=== PATIENT | female | born 1995 | race Caucasian/White ===

== ENCOUNTER 2021-03-18 00:32 | Outpatient (CLI) | payer OTHER | END 2021-03-18 03:18 | disposition home or self-care (01) | LOC: GENOP 00:32 | DX: O99.891 Other specified diseases and conditions complicating pregnancy (principal); N89.8 Other specified noninflammatory disorders of vagina; O36.8130 Decreased fetal movements, third trimester, not applicable or unspecified; O99.513 Diseases of the respiratory system complicating pregnancy, third trimester; J45.909 Unspecified asthma, uncomplicated; O16.3 Unspecified maternal hypertension, third trimester; O99.413 Diseases of the circulatory system complicating pregnancy, third trimester; I45.6 Pre-excitation syndrome; O99.333 Smoking (tobacco) complicating pregnancy, third trimester; F17.210 Nicotine dependence, cigarettes, uncomplicated; O99.343 Other mental disorders complicating pregnancy, third trimester; F41.9 Anxiety disorder, unspecified; F32.9 Major depressive disorder, single episode, unspecified; O99.353 Diseases of the nervous system complicating pregnancy, third trimester; G43.909 Migraine, unspecified, not intractable, without status migrainosus; O99.283 Endocrine, nutritional and metabolic diseases complicating pregnancy, third trimester; E28.2 Polycystic ovarian syndrome; Z91.048 Other nonmedicinal substance allergy status; Z3A.29 29 weeks gestation of pregnancy | CPT/HCPCS: 59025; 81001; 83518; 96360; J7120; J7121 ==

== ENCOUNTER 2021-06-01 15:42 | Inpatient (IN) | payer OTHER ==
[~2021-06-01] VITALS: Ht 167.6 cm; Wt 99.8 kg
[2021-06-01 19:35] LABS: HEMOGLOBIN 14.2 gm/dl (12.3-15.3); RED BLOOD COUNT 4.48 M/UL (4.00-5.10); WHITE BLOOD COUNT 14.6 K/UL (4.5-11.0)
[2021-06-01] MEDS ORDERED: ZOLOFT25 MG PO (19:56)
[2021-06-01] MEDS ORDERED: SINGULAIR10 MG PO (19:56)
[2021-06-02] MEDS ORDERED: COLACE100 MG PO (12:17)
[2021-06-02] MEDS ORDERED: IBUPROFEN800 MG PO (12:17)
[2021-06-03 07:23] LABS: HEMOGLOBIN 12.3 gm/dl (12.3-15.3)
[2021-06-04] MEDS ORDERED: IBUPROFEN800 MG PO (13:13)
[2021-06-04] MEDS ORDERED: COLACE100 MG PO (13:13)
[2021-06-04] MEDS ORDERED: HYDROCODON-ACE1 EAC4 PO (13:13)
== END 2021-06-04 16:30 | disposition home or self-care (01) | DRG 806 ==
LOC: GENOP 15:42 → OB 23:11
PROVIDERS: ADMIT Obstetrics & Gynecology
PROC: 0W8NXZZ Division of Female Perineum, External Approach (ICD-10-PCS; principal; 2021-06-02)
PROC: 10E0XZZ Delivery of Products of Conception, External Approach (ICD-10-PCS; principal; 2021-06-02)
PROC: 00HU33Z Insertion of Infusion Device into Spinal Canal, Percutaneous Approach (ICD-10-PCS; 2021-06-02)
PROC: 4A1HXCZ Monitoring of Products of Conception, Cardiac Rate, External Approach (ICD-10-PCS; 2021-06-02)
PROC: 10H07YZ Insertion of Other Device into Products of Conception, Via Natural or Artificial Opening (ICD-10-PCS; 2021-06-02)
PROC: 3E0R3BZ Introduction of Anesthetic Agent into Spinal Canal, Percutaneous Approach (ICD-10-PCS; 2021-06-02)
DX: O48.0 Post-term pregnancy (principal); O10.92 Unspecified pre-existing hypertension complicating childbirth; Z37.0 Single live birth; O99.354 Diseases of the nervous system complicating childbirth; Z3A.40 40 weeks gestation of pregnancy; O99.344 Other mental disorders complicating childbirth; F32.9 Major depressive disorder, single episode, unspecified; F41.9 Anxiety disorder, unspecified; J45.909 Unspecified asthma, uncomplicated; O99.52 Diseases of the respiratory system complicating childbirth; O99.214 Obesity complicating childbirth; E66.9 Obesity, unspecified; Z20.822 Contact with and (suspected) exposure to COVID-19
CPT/HCPCS: 51702; 81001; 85014; 85018; 85025; 90715; J0595; J2590; J2795; J7120; U0002